=== PATIENT | female | born 1960 | race Caucasian/White ===

== ENCOUNTER 2018-05-30 09:37 | Emergency (ER) | payer OTHER ==
[~2018-05-30] VITALS: Ht 165.1 cm; Wt 59.9 kg
[2018-05-30] MEDS ORDERED: NITROGLYCERIN SUBLINGUAL 0.4 MG BOTTLE OF 25. SL PRN (10:00)
[2018-05-30 10:05] LABS: BASO # 0.1 x10^3/uL (0.0-0.2); BASO % 1 % (0-3); EOS # 0.1 x10^3/uL (0.0-0.7); EOS % 1 % (0-3); HEMATOCRIT 39.1 % (36.0-47.0); HEMOGLOBIN 13.5 g/dL (12.0-15.5); LYMPH # 1.9 x10^3/uL (1.0-4.8); LYMPH % 21 % (24-48); MEAN CORPUSCULAR HEMOGLOBIN 29 pg (25-35); MEAN CORPUSCULAR HGB CONC 35 g/dL (31-37); MEAN CORPUSCULAR VOLUME 84 fL (79-100); MONO # 0.4 x10^3/uL (0.0-1.1); MONO % 5 % (0-9); NEUT # 6.5 x10^3uL (1.8-7.7); NEUT % 72 % (31-73); PLATELET COUNT 390 x10^3/uL (140-400); RED BLOOD COUNT 4.65 x10^6/uL (3.50-5.40); RED CELL DISTRIBUTION WIDTH 13.6 % (11.5-14.5)
--- NOTE | 2018-05-30 10:05 | RAD ---
Portable chest, 05/30/2018: HISTORY: Chest pain The heart size and pulmonary vascularity are within normal limits. There is minimal linear atelectasis or scarring in the left upper lobe laterally. The left lung is clear. There is no evidence of pleural fluid or pneumothorax. IMPRESSION: Minimal linear atelectasis or scarring in the right upper lobe. Electronically signed by: Cabrera Jauregui MD (05/30/2018 10:03 AM) [facility]
[2018-05-30 10:09] LABS: CALCIUM 8.9 mg/dL (8.5-10.1); GFR 56.7; POTASSIUM 3.7 mmol/L (3.5-5.1)
[2018-05-30 10:16] LABS: ALBUMIN 3.8 g/dL (3.4-5.0); ALBUMIN/GLOBULIN RATIO 1.1 (1.0-1.7); MAGNESIUM 1.7 mg/dL (1.8-2.4); TOTAL BILIRUBIN 0.6 mg/dL (0.2-1.0); TOTAL PROTEIN 7.4 g/dL (6.4-8.2)
[2018-05-30] MEDS ORDERED: LIDO:MAALOX 1:1 20 ML SINGLE DOSE. SWSW ONE (10:30)
--- NOTE | 2018-05-30 10:32 | PHYS DOC ---
Past Medical History Past Medical History: No Pertinent History Past Surgical History: Appendectomy, Cholecystectomy, Additional Past Surgical Histo: R arm surgery Additional Information: Denies smoking Alcohol Use: None Drug Use: None Adult General Chief Complaint Chief Complaint: CHEST PAIN HPI HPI Patient is a 57 year old female who was in by EMS because of chest pain. Patient states he had a road trip for 8 hours yesterday with one time stop and walking. Patient complaining of sudden onset of substernal burning pain while she was in the shower this morning with radiation to her back and rated her pain 10 over 10. Patient complaining of nausea, shortness of breath, palpitations without dizziness and paresthesia fever and chills. Patient treated with 324 Aspirin, IV fentanyl and Zofran and pain dropped to 6/10. He denies hypertension, dyslipidemia, diabetes mellitus, coronary artery disease, previous chest pain, smoking, history of DVT and PE. Patient has family history of coronary artery disease. Review of Systems Review of Systems Constitutional: Denies fever or chills [] Eyes: Denies change in visual acuity, redness, or eye pain [] HENT: Denies nasal congestion or sore throat [] Respiratory: Denies cough, reports shortness of breath [] Cardiovascular: No additional information not addressed in HPI [] GI: Denies abdominal pain, vomiting, bloody stools or diarrhea , reports nausea [] : Denies dysuria or hematuria [] Musculoskeletal: Denies back pain or joint pain [] Integument: Denies rash or skin lesions [] Neurologic: Denies headache, focal weakness or sensory changes [] Endocrine: Denies polyuria or polydipsia [] All other systems were reviewed and found to be within normal limits, except as documented in this note. Current Medications Current Medications Current Medications Medications (Trade) Dose Ordered Sig/Leopoldo Start Time Stop Time Status Last Admin Dose Admin Hydromorphone HCl (Dilaudid) 1 mg 1X ONCE 05/30/18 10:45 05/30/18 10:46 DC 05/30/18 10:49 1 MG Info (CONTRAST GIVEN -- Rx MONITORING) 1 each PRN DAILY PRN 05/30/18 11:00 06/01/18 10:59 Iohexol (Omnipaque 350 Mg/ml) 80 ml 1X ONCE 05/30/18 11:00 05/30/18 11:01 DC 05/30/18 11:00 80 ML Lorazepam (Ativan) 0.5 mg 1X ONCE 05/30/18 10:00 05/30/18 10:01 DC Multi-Ingredient Mouthwash/Gargle (Gi Cocktail) 20 ml 1X ONCE 05/30/18 10:30 05/30/18 10:31 DC 05/30/18 10:25 20 ML Nitroglycerin (Nitrostat) 0.4 mg PRN Q5MIN PRN 05/30/18 10:00 05/30/18 10:00 0.4 MG Allergies Allergies Allergies Coded Allergies Type Severity Reaction Last Updated Verified No Known Drug Allergies 05/30/18 No Physical Exam Physical Exam Constitutional: Well developed, well nourished, moderate distress, non-toxic appearance. [] HENT: Normocephalic, atraumatic, oropharynx moist. Eyes: PERRLA, EOMI, conjunctiva normal, no discharge. [] Neck: Normal range of motion, no tenderness, supple, no stridor. [] Cardiovascular:Heart rate regular rhythm, no murmur [] Lungs & Thorax: Bilateral breath sounds clear to auscultation [] Abdomen: Bowel sounds normal, soft, no tenderness, no masses, no pulsatile masses. [] Skin: Warm, dry, no erythema, no rash. [] Back: No tenderness, no CVA tenderness. [] Extremities: No tenderness, no cyanosis, no clubbing, ROM intact, no edema. [] Neurologic: Alert and oriented X 3, normal motor function, normal sensory function, no focal deficits noted. [] Psychologic: Affect anxious, judgement normal, mood normal. [] Current Patient Data Vital Signs Vital Signs Date Time Temp Pulse Resp B/P (MAP) Pulse Ox O2 Delivery O2 Flow Rate FiO2 05/30/18 13:00 92 18 134/65 (88) 100 Room Air 05/30/18 12:00 2.0 05/30/18 09:42 97.7 97.7 Lab Values Laboratory Tests Test 05/30/18 09:50 05/30/18 12:43 White Blood Count 9.0 x10^3/uL (4.0-11.0) Red Blood Count 4.65 x10^6/uL (3.50-5.40) Hemoglobin 13.5 g/dL (12.0-15.5) Hematocrit 39.1 % (36.0-47.0) Mean Corpuscular Volume 84 fL (79-100) Mean Corpuscular Hemoglobin 29 pg (25-35) Mean Corpuscular Hemoglobin Concent 35 g/dL (31-37) Red Cell Distribution Width 13.6 % (11.5-14.5) Platelet Count 390 x10^3/uL (140-400) Neutrophils (%) (Auto) 72 % (31-73) Lymphocytes (%) (Auto) 21 % (24-48) L Monocytes (%) (Auto) 5 % (0-9) Eosinophils (%) (Auto) 1 % (0-3) Basophils (%) (Auto) 1 % (0-3) Neutrophils # (Auto) 6.5 x10^3uL (1.8-7.7) Lymphocytes # (Auto) 1.9 x10^3/uL (1.0-4.8) Monocytes # (Auto) 0.4 x10^3/uL (0.0-1.1) Eosinophils # (Auto) 0.1 x10^3/uL (0.0-0.7) Basophils # (Auto) 0.1 x10^3/uL (0.0-0.2) D-Dimer (Mini) 0.33 ug/mlFEU (0.00-0.50) Sodium Level 141 mmol/L (136-145) Potassium Level 3.7 mmol/L (3.5-5.1) Chloride Level 104 mmol/L (98-107) Carbon Dioxide Level 22 mmol/L (21-32) Anion Gap 15 (6-14) H Blood Urea Nitrogen 10 mg/dL (7-20) Creatinine 1.0 mg/dL (0.6-1.0) Estimated GFR (Cockcroft-Gault) 56.7 BUN/Creatinine Ratio 10 (6-20) Glucose Level 113 mg/dL (70-99) H Calcium Level 8.9 mg/dL (8.5-10.1) Magnesium Level 1.7 mg/dL (1.8-2.4) L Total Bilirubin 0.6 mg/dL (0.2-1.0) Aspartate Amino Transferase (AST) 71 U/L (15-37) H Alanine Aminotransferase (ALT) 43 U/L (14-59) Alkaline Phosphatase 78 U/L (46-116) Creatine Kinase 70 U/L (26-192) Troponin I Quantitative < 0.017 ng/mL (0.000-0.055) BM-Igf-V-Type Natriuretic Peptide 43 pg/mL (0-124) Total Protein 7.4 g/dL (6.4-8.2) Albumin 3.8 g/dL (3.4-5.0) Albumin/Globulin Ratio 1.1 (1.0-1.7) Lipase 291 U/L (73-393) POC Troponin I 0.00 ng/ml (<0.08) Laboratory Tests 05/30/18 09:50 Laboratory Tests 05/30/18 09:50 EKG EKG EKG interpreted by me. EKG at 0 945 showed normal sinus rhythm at rate of 92, normal MT and QT intervals, poor R-wave progress in anteroseptal leads, no acute ST and T-wave abnormalities. Radiology/Procedures Radiology/Procedures [][address] [address] IMAGING REPORT Signed PATIENT: SHIRLEY HARP ACCOUNT: [id number] : 1960 LOCATION: ER AGE: 57 SEX: F EXAM STATUS: REG ER ORD. PHYSICIAN: ANTONIO RAMIREZ MD REASON: chest pain PROCEDURE: PORTABLE CHEST 1V Portable chest, 05/30/2018: HISTORY: Chest pain The heart size and pulmonary vascularity are within normal limits. There is minimal linear atelectasis or scarring in the left upper lobe laterally. The left lung is clear. There is no evidence of pleural fluid or pneumothorax. IMPRESSION: Minimal linear atelectasis or scarring in the right upper lobe. Electronically signed by: Cabrera Jauregui MD (05/30/2018 10:03 AM) [facility] DICTATED and SIGNED BY: CABRERA JAUREGUI MD DATE: 05/30/[address] [address] IMAGING REPORT Signed PATIENT: SHIRLEY HARP ACCOUNT: [id number] : 1960 LOCATION: ER AGE: 57 SEX: F EXAM STATUS: REG ER ORD. PHYSICIAN: ANTONIO RAMIREZ MD REASON: possible dissection PROCEDURE: CT ANGIOGRAPHY CHEST CTA OF THE CHEST WITH AND WITHOUT CONTRAST Clinical indications: Chest pain this morning. Possible dissection. Technique: Noncontrast axial localizer was performed. After IV infusion of 80 cc of Omnipaque 350, helical CT scanning of the chest was performed using the CT thoracic aortic protocol. Using a MIP algorithm, a 3-D thoracic aortic reconstruction was generated. PQRS compliance Statement One or more of the following individualized dose reduction techniques were utilized for this study: 1. Automated exposure control 2. Adjustment of the mA and/or kV according to patient size 3. Use of iterative reconstruction technique Comparison: None available. Findings: No focal aneurysmal dilatation or dissection/intimal flap of the thoracic aorta is seen. The heart size is normal and no pericardial effusion is seen. No pulmonary embolism is evident. Calcified right hilar lymph nodes are seen due to old granulomatous disease. No enlarged thoracic lymphadenopathy is seen. There is a cyst of the anterior aspect of the medial segment left lobe of liver. There is a subcentimeter indeterminate nodule of the lateral aspect of the anterior segment of the right lobe liver. This is too small to accurately characterize by CT. No adrenal mass is evident. Splenic cyst is seen anteriorly. A conglomerate of calcified granulomas are seen within the lateral aspect of the right upper lobe. No lung mass or lung consolidation is seen. The proximal bronchial tree is patent. No lytic process is evident. No compression fracture of the thoracic spine is evident. IMPRESSION: No thoracic aortic dissection or aneurysm. Normal heart size. No pulmonary embolism. No lung mass or acute lung infiltrate is seen. Hepatic cyst of the left lobe of the liver. Indeterminate subcentimeter hypodense nodule of the right lobe of the liver. If there is no history of primary malignancy, this most likely represents a small cyst or hemangioma. Electronically signed by: Cullen Flores MD (05/30/2018 11:58 AM) [facility] DICTATED and SIGNED BY: CULLEN FLORES MD DATE: 05/30/18 1158 Course & Med Decision Making Course & Med Decision Making Pertinent Labs and Imaging studies reviewed. (See chart for details) The patient in ER showed 57-year-old female patient brought in by EMS because of severe chest pain and fentanyl and Zofran by EMS. Patient treated with nitroglycerin and GI cocktail without improvement of her pain but her pain resolved after Dilaudid. Patient had unremarkable d-dimer. CT of chest was negative for dissection, infiltration, PE. It showed small liver hemangioma. Repeat troponin was negative. Patient did not have cardiac risk factor. Patient wanted to follow-up with her primary care physician. Plan discharge patient home with diagnose of noncardiac chest pain. Dragon Disclaimer Dragon Disclaimer This electronic medical record was generated, in whole or in part, using a voice recognition dictation system. Departure Departure Impression: Primary Impression: Non-cardiac chest pain Additional Impression: Liver hemangioma Disposition: HOME, SELF-CARE (at 1330) Condition: IMPROVED Referrals: UNKNOWN PCP NAME (PCP) Patient Instructions: Chest Pain (Nonspecific) Additional Instructions: Drink plenty of liquids Follow-up with your primary care physician in 2-3 days Return to ER if not getting better Scripts Ranitidine Hcl (ZANTAC) 150 Mg Tablet 1 TAB PO BID for dyspepsia, #30 TAB 0 Refills Prov: ANTONIO RAMIREZ MD 05/30/18 Hydrocodone/Apap 5-325 (NORCO 5-325 TABLET) 1 Each Tablet 1 TAB PO PRN Q6HRS PRN for PAIN, #14 TAB 0 Refills Prov: ANTONIO RAMIREZ MD 05/30/18 Critical Care Time Critical care time was 90 minutes exclusive of procedures. Problem Qualifiers ANTONIO RAMIREZ MD May 30, 2018 10:32
[2018-05-30] MEDS ORDERED: HYDROmorphone 2 MG/ML VIAL IV ONE (10:45)
[2018-05-30] MEDS ORDERED: IOHEXOL 350 MG/ML 100 ML VIAL. IV ONE (11:00)
[2018-05-30] MEDS ORDERED: CONTRAST GIVEN. MC PRN (11:00)
--- NOTE | 2018-05-30 11:21 | EKG ---
[facility] [address] [place] [address] Test Date: 2018-05-30 Test Time: 09:45:26 Pat Name: SHIRLEY HARP Department: Room: Gender: F Adventure Guide: : 1960 Requested By: ANTONIO RAMIREZ Order Number: [id number] Reading MD: Jone Arambula Measurements Intervals [place] Rate: 92 P: 41 TN: 136 QRS: 25 QRSD: 84 T: 20 QT: 364 QTc: 455 Interpretive Statements SINUS RHYTHM Electronically Signed On 06-05-2018 13:04:41 CDT by Jone Arambula
--- NOTE | 2018-05-30 12:01 | RAD ---
CTA OF THE CHEST WITH AND WITHOUT CONTRAST Clinical indications: Chest pain this morning. Possible dissection. Technique: Noncontrast axial localizer was performed. After IV infusion of 80 cc of Omnipaque 350, helical CT scanning of the chest was performed using the CT thoracic aortic protocol. Using a MIP algorithm, a 3-D thoracic aortic reconstruction was generated. PQRS compliance Statement One or more of the following individualized dose reduction techniques were utilized for this study: 1. Automated exposure control 2. Adjustment of the mA and/or kV according to patient size 3. Use of iterative reconstruction technique Comparison: None available. Findings: No focal aneurysmal dilatation or dissection/intimal flap of the thoracic aorta is seen. The heart size is normal and no pericardial effusion is seen. No pulmonary embolism is evident. Calcified right hilar lymph nodes are seen due to old granulomatous disease. No enlarged thoracic lymphadenopathy is seen. There is a cyst of the anterior aspect of the medial segment left lobe of liver. There is a subcentimeter indeterminate nodule of the lateral aspect of the anterior segment of the right lobe liver. This is too small to accurately characterize by CT. No adrenal mass is evident. Splenic cyst is seen anteriorly. A conglomerate of calcified granulomas are seen within the lateral aspect of the right upper lobe. No lung mass or lung consolidation is seen. The proximal bronchial tree is patent. No lytic process is evident. No compression fracture of the thoracic spine is evident. IMPRESSION: No thoracic aortic dissection or aneurysm. Normal heart size. No pulmonary embolism. No lung mass or acute lung infiltrate is seen. Hepatic cyst of the left lobe of the liver. Indeterminate subcentimeter hypodense nodule of the right lobe of the liver. If there is no history of primary malignancy, this most likely represents a small cyst or hemangioma. Electronically signed by: Cullen Flores MD (05/30/2018 11:58 AM) [id number]
[2018-05-30 13:00] VITALS: BP 134/65
[2018-05-30] MEDS ORDERED: HYDR-3164 PO (13:32)
[2018-05-30] MEDS ORDERED: RANI-376 PO (13:32)
== END 2018-05-30 13:52 | disposition home or self-care (01) ==
LOC: ER 09:37
DX: R07.2 Precordial pain (principal); D18.09 Hemangioma of other sites; M54.9 Dorsalgia, unspecified; Z90.89 Acquired absence of other organs; Z90.49 Acquired absence of other specified parts of digestive tract
CPT/HCPCS: 36415; 71045; 71275; 80053; 82550; 83690; 83735; 83880; 84484; 85025; 85379; 93005; 96374; 99285; J1170; Q9967